=== PATIENT | male | born 1990 | race Caucasian/White ===

== ENCOUNTER 2021-07-06 23:27 | Emergency (ER) | payer SELFPAY ==
[~2021-07-06] VITALS: Ht 180.3 cm; Wt 107.0 kg
[2021-07-07] MEDS ORDERED: IBUPROFEN 600MG TABLET PO STA (03:08)
[2021-07-07] MEDS ORDERED: IBUP-2029 PO (03:56)
[2021-07-07] MEDS ORDERED: HYDR-4001 PO (03:56)
[2021-07-07 04:00] VITALS: BP 136/83
== END 2021-07-07 04:10 | disposition home or self-care (01) ==
LOC: ER 23:27
DX: S52.592A Other fractures of lower end of left radius, initial encounter for closed fracture (principal); S92.252A Displaced fracture of navicular [scaphoid] of left foot, initial encounter for closed fracture; S52.612A Displaced fracture of left ulna styloid process, initial encounter for closed fracture; S62.112A Displaced fracture of triquetrum [cuneiform] bone, left wrist, initial encounter for closed fracture; V18.0XXA Pedal cycle driver injured in noncollision transport accident in nontraffic accident, initial encounter; Y93.55 Activity, bike riding; Y92.89 Other specified places as the place of occurrence of the external cause
CPT/HCPCS: 29125; 73110; 73130; 99284; A4565